=== PATIENT | male | born 1995 | race Caucasian/White ===

== ENCOUNTER 2020-01-06 19:32 | Emergency (ER) | payer BC ==
[~2020-01-06] VITALS: Ht 190.5 cm; Wt 83.4 kg
[2020-01-06 19:37] VITALS: BP 113/75; TEMP 98.2
[2020-01-06 20:28] LABS: BASO % 0.2 % (0.0-2.0); GRAN # 10.4 (1.4-6.5); GRAN % 79.8 % (42.2-75.2); HEMATOCRIT 48.8 % (42.0-52.0); HEMOGLOBIN 17.1 g/dl (13.5-18.0); LYMPH # 1.5 (1.2-3.4); LYMPH % 11.4 % (20.0-51.0); MEAN CELL VOLUME 87 fl (80.0-100.0); MEAN CORPUSCULAR HEMOGLOBIN 31 pg (27.0-31.0); MEAN CORPUSCULAR HGB CONC 35 g/dl (33.0-37.0); MEAN PLATELET VOLUME 9.4 fl (7.4-10.4); MONO # 1.1 (0.1-0.6); MONO % 8.3 % (1.7-9.3); PLATELET COUNT 224 K/mm3 (130-400); RED BLOOD COUNT 5.61 M/mm3 (4.20-5.60); REDCELL DISTRIBUTION WIDTH-CV 12.8 % (11.5-14.5)
[2020-01-06 20:42] LABS: ALBUMIN 5.1 gm/dL (3.5-5.0); C-REACTIVE PROTEIN 1.2 mg/dL (0.0-0.9); CALCIUM 10.3 mg/dL (8.4-10.2); CREATININE, serum 0.98 (0.66-1.25); POTASSIUM 4.1 mmol/L (3.4-5.0); TOTAL PROTEIN 8.5 gm/dL (6.4-8.2)
[2020-01-06] MEDS ORDERED: ZOFRAN ODT4 MG PO (21:46)
[2020-01-06 22:30] VITALS: PULSE 92
[2020-01-07] MEDS ORDERED: COMPAZINE 5MG TA5 MG PO (23:29)
[2020-01-07] MEDS ORDERED: CEPHALEXIN500 M1 PO (23:36)
== END 2020-01-06 22:30 | disposition home or self-care (01) ==
LOC: COL.ER 19:32
PROVIDERS: Nurse Practitioner
DX: R11.10 Vomiting, unspecified (principal); Z90.49 Acquired absence of other specified parts of digestive tract
CPT/HCPCS: J2405; J2550; J7030

== ENCOUNTER 2020-01-07 20:28 | Emergency (ER) | payer BC ==
[~2020-01-07] VITALS: Ht 190.5 cm; Wt 83.6 kg
[~2020-01-07 20:28] MED LIST: ZOFRAN ODT4 MG PO
[2020-01-07 20:42] VITALS: TEMP 99.2
[2020-01-07 21:06] LABS: BASO % 0.2 % (0.0-2.0); GRAN # 9.6 (1.4-6.5); GRAN % 75.7 % (42.2-75.2); HEMATOCRIT 49.8 % (42.0-52.0); HEMOGLOBIN 17.3 g/dl (13.5-18.0); LYMPH # 1.9 (1.2-3.4); LYMPH % 14.8 % (20.0-51.0); MEAN CELL VOLUME 87 fl (80.0-100.0); MEAN CORPUSCULAR HEMOGLOBIN 30 pg (27.0-31.0); MEAN CORPUSCULAR HGB CONC 35 g/dl (33.0-37.0); MEAN PLATELET VOLUME 9.1 fl (7.4-10.4); MONO # 1.1 (0.1-0.6); PLATELET COUNT 222 K/mm3 (130-400); RED BLOOD COUNT 5.73 M/mm3 (4.20-5.60); REDCELL DISTRIBUTION WIDTH-CV 12.5 % (11.5-14.5)
[2020-01-07 21:21] LABS: ALBUMIN 5.1 gm/dL (3.5-5.0); BILIRUBIN,TOTAL 2.2 mg/dL (0.0-1.0); C-REACTIVE PROTEIN 0.6 mg/dL (0.0-0.9); CALCIUM 10.1 mg/dL (8.4-10.2); CREATININE, serum 0.94 (0.66-1.25); POTASSIUM 4.3 mmol/L (3.4-5.0); TOTAL PROTEIN 8.5 gm/dL (6.4-8.2)
[2020-01-07 22:34] LABS: COLLECTION METHOD CLEAN CATCH
[2020-01-07 22:43] LABS: BUDDING YEAST Present /hpf; MUCOUS Present /lpf; PH 7 (5-8); SQUAMOUS EPITHELIAL None Seen /hpf; URINE APPEARANCE Turbid; URINE BACTERIA Rare /hpf; URINE BILIRUBIN Negative (NEGATIVE); URINE BLOOD Negative (NEGATIVE); URINE COLOR Yellow; URINE GLUCOSE Negative (NEGATIVE); URINE KETONE 2+ (NEGATIVE); URINE LEUKOCYTE ESTERASE Trace (NEGATIVE); URINE NITRATE Negative (NEGATIVE); URINE PROTEIN(semi-quant) Negative (NEGATIVE); URINE UROBILINOGEN >=4.0 mg/dL (NEGATIVE)
[2020-01-07 22:50] LABS: TRICYCLIC ANTIDEPRESS URINE NEGATIVE
[2020-01-07] MEDS ORDERED: COMPAZINE 5MG TA5 MG PO (23:29)
[2020-01-07] MEDS ORDERED: CEPHALEXIN500 M1 PO (23:36)
[2020-01-08 00:42] VITALS: BP 138/90; PULSE 82
== END 2020-01-08 00:45 | disposition home or self-care (01) ==
LOC: COL.ER 20:28
PROVIDERS: Physician Assistant
DX: N39.0 Urinary tract infection, site not specified (principal); R11.15 Cyclical vomiting syndrome unrelated to migraine; Z90.49 Acquired absence of other specified parts of digestive tract
CPT/HCPCS: C9113; J0696; J1790; J2060; J2550; J7030